=== PATIENT | female | born 2005 | race Caucasian/White ===

== ENCOUNTER 2023-12-08 19:58 | Emergency (ER) | payer SELFPAY ==
[~2023-12-08] VITALS: Ht 162.6 cm; Wt 95.5 kg
[~2023-12-08 19:58] MED LIST: IBU800 M1 PO; PERCOCET 325 MG1 TA2 PO; ZOLOFT 25MG25 MG PO
[2023-12-08 20:09] VITALS: TEMP 98.1
[2023-12-08] MEDS ORDERED: Ondansetron 4 MG/2 ML VIAL IV ONE (20:30)
[2023-12-08] MEDS ORDERED: ZOFRAN ODT4 MG PO (20:56)
[2023-12-08] MEDS ORDERED: NORCO 325 MG-51 TAB PO (20:56)
[2023-12-08 21:04] VITALS: BP 118/76; PULSE 75
== END 2023-12-08 21:06 | disposition home or self-care (01) ==
LOC: COL.ER 19:58
DX: S09.90XA Unspecified injury of head, initial encounter (principal); S00.83XA Contusion of other part of head, initial encounter; W01.198A Fall on same level from slipping, tripping and stumbling with subsequent striking against other object, initial encounter; Y93.01 Activity, walking, marching and hiking